=== PATIENT | male | born 1945 | race Caucasian/White ===

== ENCOUNTER → 2019-12-18 12:02 | Outpatient (CLI) | payer MEDICARE, OTHER, SELFPAY ==
--- NOTE | 2019-12-18 | DI.MRI.S_ITS ---
PROCEDURE: MR LUMBAR SPINE WO CON INDICATIONS: Radiculopathy, lumbar region TECHNIQUE: Noncontrast sagittal T1 spin echo and T2 fast echo, sagittal STIR, axial T1 and T2 fast spin echo through the lumbar spine. In cases with scoliosis, additional coronal T2 fast spin echo may be performed. COMPARISON: [facility], CR, XR LUMBAR SPINE WITH OLBIQUES PLUS FLEXION EXTENSION, 11/27/2019, 8:43. FINDINGS: Image quality: Excellent. Alignment and Curvature: 5 lumbar type vertebral bodies are present by plain film. Mild grade 1 retrolisthesis of T12 on L1, L1 on L2, L2 on L3, L3 on L4, L4 on L5, and L5 Bone Marrow: Marrow is of normal overall signal. No acute vertebral body compression fractures. On S1. Moderate reactive signal within the endplates adjacent to the T12-L1 and L5-S1 intervertebral discs. Mild reactive signal throughout the remainder of the lumbar endplates. Spinal Cord: Conus medullaris terminates at the mid L2 level. Visualized cord demonstrates normal signal and size. Paraspinous Soft Tissues: No paravertebral masses. L1-L2: Moderate disc height loss and desiccation. Mild diffuse disc bulge. Mild facet and ligamentum flavum hypertrophy. Mild epidural lipomatosis. Mild canal stenosis. Mild bilateral foraminal stenosis. L2-L3: Moderate disc height loss and desiccation. Moderate diffuse disc bulge. Mild facet and ligamentum flavum hypertrophy. Mild epidural lipomatosis. Moderate canal stenosis. Mild bilateral foraminal stenosis. L3-L4: Moderate disc height loss and desiccation. Moderate diffuse disc bulge. Mild facet and ligamentum flavum hypertrophy. Mild epidural lipomatosis. Severe canal stenosis. Moderate bilateral foraminal stenosis. L4-L5: Moderate disc height loss and desiccation. Mild diffuse disc bulge. Mild facet and ligamentum flavum hypertrophy. Mild epidural lipomatosis. Moderate canal stenosis. Moderate subarticular foraminal stenosis bilaterally. L5-S1: Severe disc height loss and desiccation. Mild diffuse disc bulge/osteophyte. Mild bilateral facet hypertrophy. Mild canal stenosis. Moderate subarticular foraminal stenosis bilaterally. IMPRESSION: 1. Multilevel degenerative disc and facet disease, as well as ligamentum flavum hypertrophy and epidural lipomatosis. 2. Multilevel canal stenosis, worst at L3-L4, where there is severe canal stenosis. Moderate canal stenoses at L2-L3 and L4-L5. 3. Multilevel foraminal stenoses, worst at L3-L4, L4-L5, and L5-S1, where there are moderate foraminal stenoses. Dictated by: Luz Majano M.D. on 12/18/2019 at 14:15 Approved by: Luz Majano M.D. on 12/18/2019 at 14:19
== END ==
PROVIDERS: PCP Internal Medicine; Referring Provider Physical Medicine & Rehabilitation; Visit Provider Physical Medicine & Rehabilitation
DX: M51.16 Intervertebral disc disorders with radiculopathy, lumbar region (principal); M51.17 Intervertebral disc disorders with radiculopathy, lumbosacral region; M48.061 Spinal stenosis, lumbar region without neurogenic claudication; M48.07 Spinal stenosis, lumbosacral region; E88.2 Lipomatosis, not elsewhere classified
CPT/HCPCS: 72148

== ENCOUNTER → 2020-04-25 19:12 | Outpatient (ROUT) | payer MEDICARE, OTHER, SELFPAY | PROVIDERS: PCP Internal Medicine; Visit Provider Internal Medicine | DX: N40.0 Benign prostatic hyperplasia without lower urinary tract symptoms (principal) | CPT/HCPCS: 84153 ==

== ENCOUNTER 2020-06-04 10:03 | Emergency (ER) | payer MEDICARE, OTHER, SELFPAY ==
[2020-06-04 10:03] VITALS: BP 172/92; PULSE 61; RESP 12; TEMP 36.4; O2SAT 98; BMI 27.9
[2020-06-04 10:09] VITALS: BP 172/92; PULSE 59
--- NOTE | 2020-06-04 10:14 | ED_ITS ---
HPI - Chest Pain General Chief Complaint: Chest Pain Stated Complaint: chest pain Time Seen by Provider: 06/04/20 10:08 Source: patient and family () Mode of arrival: Family Vehicle Limitations: no limitations History of Present Illness HPI narrative: This is a 74-year-old male comes emergency department with co mplaint of chest pain. Patient states started about an hour prior to arrival. Patient states he was just getting in the shower. He has not had similar symptoms in the past. Does have a history of UT with a stent 1995 and in 2013. Patient states at that time he had back pain this does not feel similar. He denies any clamminess or diaphoresis. No lightheadedness. No shortness of breath. No nausea or vomiting. He has not had any diarrhea constipation. He denies any urinary symptoms. He has noted some mild swelling in his lower extremities which is new. He does take aspirin 162 mg daily along with blood pressure medication and dyslipidemia medication. He smokes cigars most days. Drinks 1 alcoholic drink daily with no recreational drugs. Patient had an echo in the last year with his diabetes physician Dr. Jones. Patient states he had cataract surgery 2 days prior. He also 3000 mi flight which is about 5-6 hours about 6 days ago. Patient states he did ambulate during his flight. He has also had both Pfzer Related Data Allergies Allergy/AdvReac Type Severity Reaction Status Date / Time No Known Drug Allergies Allergy Verified 06/04/20 10:13 Review of Systems Review of Systems ROS Unobtainable: All systems reviewed & are unremarkable except as noted in HPI and below Patient History Social History Smoking Status: Current some day smoker Smoking Status: Current some day smoker tobacco type: cigars Substance Use Type: does not use Exam Narrative Exam Narrative: GENERAL: Alert and oriented x three, well-nourished male in moderate distress. Patient is not diaphoretic. HEENT: Head normocephalic, atraumatic, EOMI, pupils reactive, face symmetric, moist mucous membranes NECK: Supple, full range of motion CARDIOVASCULAR: Regular rate and rhythm without murmurs, rubs or gallops. RESPIRATORY: Breath sounds equal bilaterally, no wheezes rales or rhonchi. ABDOMEN: Soft, nontender. Normoactive bowel sounds all 4 quadrants. No guarding or rebound, rigidity, no mass : No CVA tenderness EXTREMITIES: Normal range of motion, no clubbing trace ankle edema. Non pedal. Neurovascularly intact NEUROLOGICAL: Cranial nerves II through XII grossly intact. Moving all extremities SKIN: Warm, dry, no petechiae, no rashes or lesions. Initial Vital Signs Initial Vital Signs: Vital Signs Temperature 97.6 F 06/04/20 10:03 Pulse Rate 61 06/04/20 10:03 Respiratory Rate 12 06/04/20 10:03 Blood Pressure 172/92 H 06/04/20 10:03 Pulse Oximetry 98 06/04/20 10:03 Course Orders Ordered: ED Orders 06/04/20 10:08 EKG-12 Lead Stat 06/04/20 10:15 COVID19 - ADMIT ([employer] IN [employer] swab/PCR) Stat 06/04/20 10:27 Complete Blood Count AUTO DIFF Stat Comprehensive Metabolic Panel Stat D Dimer Stat Lipase Stat NT-proBNP (BNP-Adult 18+) Stat Partial Thromboplastin Time Stat Prothrombin Time INR Stat Troponin & CK Cardiac Panel Stat Discontinued Medications Aspirin (Aspirin 81 Mg Chew Tab) 324 mg PO NOW ONE Stop: 06/04/20 10:09 Last Admin: 06/04/20 10:15 Dose: 324 mg Documented by: NA Fentanyl (Fentanyl 100 Mcg/2 Ml Inj) 25 mcg IV NOW ONE Stop: 06/04/20 10:29 Last Admin: 06/04/20 10:31 Dose: 25 mcg Documented by: NA Fentanyl (Fentanyl 100 Mcg/2 Ml Inj) 25 mcg IV NOW ONE Stop: 06/04/20 10:45 Last Admin: 06/04/20 10:46 Dose: 25 mcg Documented by: NA Heparin Sodium (Porcine) (Heparin 5,000 Unit/Ml Vial) 5,000 unit IV NOW ONE Stop: 06/04/20 10:17 Last Admin: 06/04/20 10:20 Dose: 5,000 unit Documented by: NA Sodium Chloride (Normal Saline 0.9%) 1,000 mls @ 150 mls/hr IV CONT MICHEL Last Infusion: 06/04/20 10:47 Dose: 999 mls/hr Documented by: Admin: 06/04/20 10:29 Dose: 150 mls/hr Documented by: NA Heparin Sodium/Dextrose (Heparin Drip) 25,000 unit in 500 mls @ 21.228 mls/hr IV CONT MICHEL; Protocol Last Infusion: 06/04/20 10:47 Dose: 11.98 units/kg/hr, 21.2 mls/hr Documented by: Admin: 06/04/20 10:20 Dose: 12 units/kg/hr, 21.228 mls/hr Documented by: NA Nitroglycerin (Nitroglycerin 0.4 Mg Sl Tab) 0.4 mg SL [id number] PRN PRN Reason: chest pain Last Admin: 06/04/20 10:20 Dose: 0.4 mg Documented by: NA Reevaluation(s) Reevaluation #1: Patient's chest pain did not improve with nitro but he dropped his pressure approximately 60 points from 172 systolic to 116. Based on this patient was given fentanyl. Heparin drip is running. Patient has received his aspirin. Time: 10:31 Consultations Consultation #1: Dr. Sen accepts for transfer to [facility] for STEMI. Time: 10:18 Vital Signs Vital signs: Vital Signs - 8 hr 06/04/20 10:03 06/04/20 10:09 06/04/20 10:22 Temperature 97.6 F Pulse Rate 61 59 L 64 Respiratory Rate 12 20 Blood Pressure 172/92 H 172/92 H Pulse Oximetry 98 06/04/20 10:27 Temperature Pulse Rate 64 Respiratory Rate 18 Blood Pressure 116/70 Pulse Oximetry 97 MDM - Chest Pain Lab Data Result diagrams: 06/04/20 10:27 06/04/20 10:27 Labs: Lab Results 06/04/20 06/04/20 06/04/20 Range/Units 10:15 10:27 10:27 WBC 5.4 (4.5-11.0) X10^3/uL RBC 4.53 (4.5-5.9) X10^6/uL Hgb 14.7 (13.5-17.5) g/dL Hct 42.3 (41-53) % MCV 93.4 (80-100) fL MCH 32.5 (26-34) PG MCHC 34.8 (30-36) % RDW 13.0 (11.6-14.8) % Plt Count 214 (150-400) X10^3/uL Neut % (Auto) 53.6 (50-75) % Lymph % (Auto) 36.0 (25-40) % Redwood % (Auto) 9.7 (3-14) % Eos % (Auto) 0.3 L (2-4) % Baso % (Auto) 0.4 (0-2) % Neut # (Auto) 2900 (4103-9042) /uL Lymph # (Auto) 2000 (5034-4450) /uL Redwood # (Auto) 500 (0-900) /uL Eos # (Auto) 0 (0-450) /uL Baso # (Auto) 0 (0-100) /uL PT 12.9 H (10.1-12.7) SECONDS INR 1.1 (0.9-1.3) APTT < 400 H* (26.4-36.2) SECONDS D-Dimer (<230) ng/mL Sodium (137-145) mmol/L Potassium (3.4-5.1) mmol/L Chloride (98-107) mmol/L Carbon Dioxide (22-32) mmol/L BUN (9-20) mg/dL Creatinine (0.66-1.25) mg/dL Estimated GFR (>60) mL/min BUN/Creatinine Ratio (6-22) Glucose (80-110) mg/dL Calcium (8.4-10.2) mg/dL Total Bilirubin (0.2-1.3) mg/dL AST (17-59) IU/L ALT (<50) IU/L Alkaline Phosphatase (38-126) U/L Total Creatine Kinase (55-170) U/L CK-MB (CK-2) CK-MB (CK-2) Rel Index Troponin I (0.01-0.034) ng/mL NT-Pro-B Natriuret Pep (<450) pg/mL Total Protein (6.3-8.2) g/dL Albumin (3.5-5.0) g/dL Globulin (1.7-4.1) g/dL Albumin/Globulin Ratio (1.0-2.8) Lipase (23-300) U/L SARS-CoV-2 (PCR) Negative (Negative) 06/04/20 06/04/20 Range/Units 10:27 10:27 WBC (4.5-11.0) X10^3/uL RBC (4.5-5.9) X10^6/uL Hgb (13.5-17.5) g/dL Hct (41-53) % MCV (80-100) fL MCH (26-34) PG MCHC (30-36) % RDW (11.6-14.8) % Plt Count (150-400) X10^3/uL Neut % (Auto) (50-75) % Lymph % (Auto) (25-40) % Redwood % (Auto) (3-14) % Eos % (Auto) (2-4) % Baso % (Auto) (0-2) % Neut # (Auto) (1060-7762) /uL Lymph # (Auto) (2443-0818) /uL Redwood # (Auto) (0-900) /uL Eos # (Auto) (0-450) /uL Baso # (Auto) (0-100) /uL PT (10.1-12.7) SECONDS INR (0.9-1.3) APTT (26.4-36.2) SECONDS D-Dimer 880 H (<230) ng/mL Sodium 139 (137-145) mmol/L Potassium 4.0 (3.4-5.1) mmol/L Chloride 105 (98-107) mmol/L Carbon Dioxide 26 (22-32) mmol/L BUN 16 (9-20) mg/dL Creatinine 0.94 (0.66-1.25) mg/dL Estimated GFR > 60.0 (>60) mL/min BUN/Creatinine Ratio 17.0 (6-22) Glucose 134 H (80-110) mg/dL Calcium 9.2 (8.4-10.2) mg/dL Total Bilirubin 1.1 (0.2-1.3) mg/dL AST 26 (17-59) IU/L ALT 20 (<50) IU/L Alkaline Phosphatase 71 (38-126) U/L Total Creatine Kinase 78 (55-170) U/L CK-MB (CK-2) TNP CK-MB (CK-2) Rel Index TNP Troponin I < 0.012 (0.01-0.034) ng/mL NT-Pro-B Natriuret Pep 188 (<450) pg/mL Total Protein 7.2 (6.3-8.2) g/dL Albumin 4.6 (3.5-5.0) g/dL Globulin 2.6 (1.7-4.1) g/dL Albumin/Globulin Ratio 1.8 (1.0-2.8) Lipase 174 (23-300) U/L SARS-CoV-2 (PCR) (Negative) ECG Data Attestation: I personally reviewed and interpreted this ECG as follows: Prior ECG tracings: not available for review Interpretation: ST elevation in 2 3 AVF with reciprocal changes in 1 and aVL. Patient appears to have some elevation in V6 and possibly V5 as well. No prior available. MDM Narrative Medical decision making narrative: This is a 74-year-old male comes when with substernal anterior chest pain without radiation. Patient has ST elevation on his EKG. He does not have any priors for evaluation but patient's EKG is consistent with ST elevated UT. Patient was given aspirin 324 mg here. Heparin was started and patient was given nitro which significantly dropped his pressure. Patient was given fentanyl x 2 instead with minimal improvement. is at bedside and aware of plan. Patient transferred ER to ER with accepting physician Dr. Sen. EKG was sent for review. Critical Care Time Critical Care Time Critical Care Time: Yes Total Critical Care Time: 35 Attestation: The high probability of a clinically significant, sudden or life threatening deterioration of the [cardiac, pulm] system(s) required my full and direct attention, intervention and personal management. The aggregate critical care time was [35] minutes. This time is in addition to time spent performing report ed procedures but includes the following: [x] Data Review and interpretation [x] Patient assessment and monitoring of vital signs [x] Documentation [x] Medication orders and management Discharge Plan Departure [facility] Clinical Impression: ST elevation (STEMI) myocardial infarction Referrals: Gutierrez Michelle MD [Primary Care Provider] -
[2020-06-04] MEDS: ASPIRIN 81 MG CHEW TAB 324 MG PO (10:15)
[2020-06-04] MEDS: HEPARIN 5,000 UNIT/ML VIAL 5000 UNIT IV (10:20)
[2020-06-04] MEDS: HEPARIN DRIP 25,000 UNIT/500 ML IV.SOLN 21.228 UNIT IV (10:20)
[2020-06-04] MEDS: NITROGLYCERIN 0.4 MG SL TAB SL (10:20)
[2020-06-04 10:22] VITALS: PULSE 64; RESP 20
[2020-06-04 10:27] VITALS: BP 116/70; PULSE 64; RESP 18; O2SAT 97
[2020-06-04] MEDS: SODIUM CHLORIDE 0.9% 1,000 ML 150 ML IV (10:29)
[2020-06-04] MEDS: fentaNYL 100 MCG/2 ML INJ 25 MCG IV ×2 (10:31→10:46)
[2020-06-04 10:34] LABS: Add Manual Diff / Slide Review NO; Basophils Absolute Auto 0 /uL (0-100); Basophils Percent Auto 0.4 % (0-2); Eosinophils Absolute Auto 0 /uL (0-450); Eosinophils Percent Auto 0.3 % (2-4); Hematocrit 42.3 % (41-53); Hemoglobin 14.7 g/dL (13.5-17.5); Lymphocytes Absolute Auto 2000 /uL (1100-4500); Mean Corpuscular HGB Conc 34.8 % (30-36); Mean Corpuscular Hemoglobin 32.5 PG (26-34); Mean Corpuscular Volume 93.4 fL (80-100); Monocytes Absolute Auto 500 /uL (0-900); Monocytes Percent Auto 9.7 % (3-14); Neutrophils Absolute Auto 2900 /uL (1500-7000); Neutrophils Percent Auto 53.6 % (50-75); Platelet Count 214 X10^3/uL (150-400); Red Blood Cell Count 4.53 X10^6/uL (4.5-5.9); White Blood Cell Count 5.4 X10^3/uL (4.5-11.0)
[2020-06-04 10:40] LABS: INR 1.1 (0.9-1.3); Prothrombin Time 12.9 SECONDS (10.1-12.7)
[2020-06-04 10:50] LABS: Alanine Aminotransferase 20 IU/L (<50); Albumin 4.6 g/dL (3.5-5.0); Albumin Globulin Ratio 1.8 (1.0-2.8); Alkaline Phosphatase 71 U/L (38-126); Aspartate Aminotransferase 26 IU/L (17-59); Bilirubin Total 1.1 mg/dL (0.2-1.3); Blood Urea Nitrogen 16 mg/dL (9-20); Calcium 9.2 mg/dL (8.4-10.2); Carbon Dioxide 26 mmol/L (22-32); Chloride 105 mmol/L (98-107); Creatine Kinase 78 U/L (55-170); Estimated Glomerular Filt Rate > 60.0 mL/min (>60); Globulin 2.6 g/dL (1.7-4.1); Glucose 134 mg/dL (80-110); HEMOLYSIS < 15 (0-50); Lipase 174 U/L (23-300); Sodium 139 mmol/L (137-145); Total Protein 7.2 g/dL (6.3-8.2)
[2020-06-04 11:01] LABS: Troponin I < 0.012 ng/mL (0.01-0.034)
[2020-06-04 11:12] LABS: PTT Partial Thromboplastin Tim < 400 SECONDS (26.4-36.2)
[2020-06-04 11:21] LABS: NT-proBNP (BNP-Adult 18+) 188 pg/mL (<450)
[2020-06-04 11:25] LABS: COVID19 - ADMIT (NP swab/PCR) Negative (Negative)
[2020-06-06 09:29] LABS: D Dimer > 400 ng/mL (<230)
== END 2020-06-04 10:57 | disposition short-term general hospital (02) ==
LOC: ED 10:25
PROVIDERS: Emergency Provider Emergency Medicine; PCP Internal Medicine
DX: I21.3 ST elevation (STEMI) myocardial infarction of unspecified site (principal); Z20.822 Contact with and (suspected) exposure to COVID-19; R07.9 Chest pain, unspecified
CPT/HCPCS: 80053; 82550; 83690; 83880; 84484; 85025; 85379; 85610; 85730; 87635; 93005; 93010; 96365; 96375; 99284; 99291; C9803; J1644; J3010

== ENCOUNTER → 2021-05-16 11:06 | Outpatient (CLI) | payer MEDICARE, OTHER, SELFPAY ==
[2021-05-16 11:40] LABS: Appearance Urine UA CLEAR; Bilirubin Urine UA NEGATIVE (NEGATIVE); Color Urine UA YELLOW; Glucose Urine UA NEGATIVE (Negative); Ketones Urine UA NEGATIVE (NEGATIVE); Leukocyte Esterase Urine UA NEGATIVE (NEGATIVE); Nitrite Urine UA NEGATIVE (Negative); Occult Blood Urine UA NEGATIVE (Negative); Protein Urine UA NEGATIVE (Negative); Urobilinogen Urine UA 0.2 E.U./dL (0.2)
[2021-05-16 11:46] LABS: Bacteria Urine None Seen; Culture Indicated Urine Cult Not Indicated; RBC Urine None Seen (0-5/HPF); Urine Comments Microscopic Normal; WBC Urine None Seen (0-5/HPF)
[2021-05-16 11:53] LABS: Hemoglobin A1C% w Est Avg Glu 5.2 % (4.0-6.0)
[2021-05-16 12:00] LABS: Blood Urea Nitrogen 16 mg/dL (9-20); Calcium 9.3 mg/dL (8.4-10.2); Carbon Dioxide 26 mmol/L (22-32); Chloride 105 mmol/L (98-107); Estimated Glomerular Filt Rate > 60.0 mL/min (>60); Glucose 119 mg/dL (80-110); HEMOLYSIS < 15 (0-50); Potassium 4.9 mmol/L (3.4-5.1); Sodium 140 mmol/L (137-145)
[2021-05-16 12:42] LABS: Add Manual Diff / Slide Review NO; Basophils Absolute Auto 0 /uL (0-100); Basophils Percent Auto 0.4 % (0-2); Eosinophils Absolute Auto 0 /uL (0-450); Eosinophils Percent Auto 0.4 % (2-4); Hemoglobin 14.8 g/dL (13.5-17.5); Lymphocytes Absolute Auto 1500 /uL (1100-4500); Lymphocytes Percent Auto 27.4 % (25-40); Mean Corpuscular HGB Conc 34.5 % (30-36); Mean Corpuscular Hemoglobin 32.1 PG (26-34); Mean Corpuscular Volume 93.2 fL (80-100); Monocytes Absolute Auto 600 /uL (0-900); Monocytes Percent Auto 10.8 % (3-14); Neutrophils Absolute Auto 3400 /uL (1500-7000); Platelet Count 247 X10^3/uL (150-400); Red Blood Cell Count 4.62 X10^6/uL (4.5-5.9); Red Cell Distribution Width 12.8 % (11.6-14.8); White Blood Cell Count 5.6 X10^3/uL (4.5-11.0)
== END ==
PROVIDERS: PCP Internal Medicine; Referring Provider Orthopaedic Surgery; Visit Provider Orthopaedic Surgery
DX: Z01.818 Encounter for other preprocedural examination (principal); R73.9 Hyperglycemia, unspecified; N39.0 Urinary tract infection, site not specified
CPT/HCPCS: 36415; 80048; 81001; 83036; 85025; 93005

== ENCOUNTER → 2021-06-21 09:21 | Outpatient (CLI) | payer MEDICARE, OTHER, SELFPAY ==
[2021-06-21 13:20] LABS: COVID19 -Nasal RAPID Negative (Negative)
== END ==
PROVIDERS: PCP Internal Medicine; Visit Provider Family Medicine Sleep Medicine
DX: Z20.822 Contact with and (suspected) exposure to COVID-19 (principal)
CPT/HCPCS: 87635; C9803

== ENCOUNTER 2021-06-23 11:21 | Day surgery (SDC) | payer MEDICARE, OTHER, SELFPAY ==
[2021-06-22 12:51] VITALS: BMI 25.9
[2021-06-23] VITALS (11 sets, daily range): BP systolic 100–148; BP diastolic 56–93; PULSE 73–93; RESP 11–19; TEMP 35.7–36.6; O2SAT 92–97; BMI 25.9
--- NOTE | 2021-06-23 06:00 | DI.RAD.S_ITS ---
PROCEDURE: XR HIP W PEL IF DONE RT 2V INDICATIONS: [place] on THE RIGHT TECHNIQUE: 4 view(s) of the hip acquired. COMPARISON: [facility], [place], XR HIP W PEL IF DONE RT 2V, 06/23/2021, 16:20. FINDINGS: Bones: Patient is status post right hip arthroplasty, with hardware components in expected positions. The hip joint appears congruent. The visualized bony structures appear intact. Soft tissues: Overlying postoperative changes are noted. No suspicious soft tissue densities. IMPRESSION: Intraoperative guidance for right hip arthroplasty. Dictated by: Riki Bolaños M.D. on 06/23/2021 at 17:38 Approved by: Riki Bolaños M.D. on 06/23/2021 at 17:39
[2021-06-23] MEDS: ACETAMINOPHEN 325 MG TABLET 975 MG PO (11:46)
[2021-06-23] MEDS: CELECOXIB 200 MG CAPSULE PO (11:47)
[2021-06-23] MEDS: LACTATED RINGERS 1,000 ML 42 ML IV ×2 (12:06→13:54)
[2021-06-23] MEDS: VANCOMYCIN 1,000 MG/200 ML PIGGYBACK 200 MG IV (12:08)
--- NOTE | 2021-06-23 12:32 | P.OP_ITS ---
Operative Date/Time/Diagnoses Date of procedure: 06/23/21 Time of procedure: 12:30 Pre-op diagnosis: left hip OA Post-op diagnosis: same Procedure & Clinicians Procedure: Right total hip arthroplasty anterior approach Same procedure as scheduled: Yes Indications: The patient has had progressively worsening right hip pain with radiographic ch anges consistent with arthritis. Non-operative management has failed and the patient has requested total hip replacement. The risks, benefits and alternatives to surgery were discussed with the patient prior to proceeding. Risks discussed included, but were not limited to, failure to relieve pain, leg length discrepancy, dislocation, stiffness, infection, nerve damage, deep venous thrombosis, pulmonary embolism, stroke, coma, heart attack, permanent paralysis and , as well as the potential need for eventual revision of the prosthetic. Surgeon: Peggy Cespedes [employer] Technical Lead Senior Developer: Kyung Lewis Anesthesia Type: General and Spinal Operative Notes Findings: Severe right hip osteoarthritis, adequate bone and stability Closure Type: primary Specimen(s): none sent Prosthetic devices, grafts, tissues, transplants, or devices: Cespedes and nephew size 11 standard offset anthology, 56 mm R3 cup, neutral poly liner, 36 by +0 Oxinium head,two screws Estimated Blood Loss (mL): 250 Blood products transfused: none Procedure in detail: The patient was brought to the operating room. Patient was carefully positioned in the supine position. Time-out was performed and antibiotics were given. Anesthesia was induced. He was positioned in the on the table in order to allow hyperextension of the hip. The right lower extremity was prepped and draped in a standard sterile fashion. An anterior right hip incision was made 1 fingerbreadth lateral to the anterior superior iliac spine and extended distally towards the greater trochanter. Dissection was carried out through skin and subcutaneous tissues. Superficial hemostasis was achieved. The fascia over the tensor fascia gordy was defined and incised with a knife. Two Allis clamps were used to grasp the fascia. Tensor fascia gordy was retracted laterally. A gelpi retractor was placed. Dissection was carried out down along the neck. The circumflex vessels were carefully identified and cauterized with the Aqua Mantis. There was good visualization of the femoral neck. A Cobra was placed superior to the neck and the gluteus fibers were carefully stripped from that superior aspect of the capsule. A 2nd retractor was placed along the inferior aspect of the neck. The rectus insertion along the capsule was partially released. A 3rd retractor that was then gently placed over the rim of the acetabulum under the rectus. Capsule was carefully incised and released from the intertrochanteric line circumferentially superior to the mid sagittal line and inferiorly to the mid sagittal line until the lesser trochanter was palpable. A tag stitch was placed both in the superior and inferior limb of the capsular insertion. Along the acetabulum capsule was also released up to the mid sagittal 12:00 position. A portion of the labrum was resected. A saw was used to perform an osteotomy at the level of the intertrochanteric line and the junction of the superior femoral neck leaving approximately 1 finger breath of residual inferior neck above the lesser trochanter. A 2nd cut was made along the femoral neck at the base of the head and a napkin ring of neck was removed. Corkscrew was placed in the femoral head and the head was removed without difficulty. Retractors were then repositioned around the acetabulum. Residual labrum was resected and additional osteophytes were removed. A reamer that was 4 mm below the templated size was placed by hand in the acetabulum and it was reamed to centralize the acetabulum. It was then reamed up to 2 under the templated size and fluoroscopy was brought in to confirm the position of the reaming and depth of reaming. I reamed 1 under the anticipated size. A trial cup was placed and noted that it was appropriately sized and fluoroscopy confirmed position and depth. The component was open and inserted without difficulty fluoroscopic imaging was used to confirm that the cup had been adequately seated and was well positioned. It was further stabilized with 2 screws. Neutral trial liner was placed. The cup was tested and noted to be stable. Attention was then directed to the femur. The femur was gently hyperextended additional capsular release was performed as needed in order to allow adequate visualization of the proximal femur with elevation of the femur. Patient was placed in a hyperextended slightly adducted position with maximum external rotation. Box osteotome was used to check for any residual neck as well as sclerotic bone along the trochanter. Biola pepper was placed in the femur. Additional broaching was performed. Canal finder was used to determine the alignment of the canal and position. Size 1 broach was placed. The canal was then appropriately broached up to the templated size as long as there was adequate stability of the broach and serial advancement of the broach without excessive impingement. Specific attention was directed at avoiding varus attempting to direct the distal aspect of the broach more anteriorly and avoiding excessive anteversion. Trial reduction showed acceptable range of motion, good stability, no posterior impingement, mosque of leg length and appropriate lateral shuck. I also hyperflexed the hip and checked that there was no impingement anteriorly and there was good stability with flexion, adduction and internal rotation. Marcaine and Exparel were injected. The stem was placed without difficulty. Repeat trial reduction and x-ray showed acceptable overall position, length, and no evidence of the femoral fracture. Final head was placed. Wound was meticulously irrigated with normal saline. The hip was reduced and additional Exparel and Marcaine were injected. The capsule was closed with interrupted nonabsorbable sutures. The fascia of the tensor was closed with interrupted and running Vicryl. No drain was placed. Any tensor fascia gordy muscle that appeared to be contused or injured which was a minimal amount was carefully resected. Capsule around the tensor was injected with Exparel and Marcaine. The skin was closed with barbed stitches for the subcutaneous tissue and skin. We also used surgical glue. The wound was dressed sterilely. Brief Betadine soak was also used and was meticulously irrigated with normal saline. Patient was transferred to recovery room in satisfactory condition. Complications: none Post-operative Condition: stable Disposition: Acute Care Plan for aftercare: The patient will be maintained on a standard total hip replacement protocol with weight bearing as tolerated and anterior hip precautions. The patient will receive Aspirin and sequential compression devices for DVT prophylaxis. The patient will be discharged home when safe for the home environment.
--- NOTE | 2021-06-23 12:32 | PM.PREOP ---
Pre-operative Note COVID-19 COVID-19 status: Negative Interval Note History & Physical reviewed/Exam performed by Physician: Yes Changes to H&P: No
[2021-06-23] MEDS: CEFAZOLIN 2 GM/20 ML SYRINGE IV ×2 (12:55→21:08)
[2021-06-23] MEDS: TRANEXAMIC ACID 1,000 MG VIAL 1000 MG INJ ×2 (13:00→15:15)
--- NOTE | 2021-06-23 13:23 | SUR.OPER ---
Patient supine on padded Kent table, one arm on padded arm board at <90, other arm padded and secured with tape across patient's chest, both legs secured in padded traction boots and positioned per surgeon, padded post at patient's groin, pressure points checked and padded.
[2021-06-23] MEDS: SODIUM CHLORIDE IRRIG SOLUTION 250 ML, POVIDONE-IODINE SPONGE STICKS 1 APPLIC IRR (15:15)
[2021-06-23] MEDS: BUPIVACAINE LIPOSOME 266 MG/20 ML VIAL INJ (15:16)
[2021-06-23] MEDS: BUPIVACAINE 0.25% (PF) 60 ML, EPINEPHrine 0.3 MG INJ (15:16)
--- NOTE | 2021-06-23 15:29 | DI.RAD.S_ITS ---
PROCEDURE: XR HIP W PEL IF DONE RT 2V INDICATIONS: RIGHT TOTAL HIP (ANT) TECHNIQUE: AP pelvis with lateral view(s) of the right hip(s). COMPARISON: [facility], , XR HIP W PEL IF DONE RT 2V, 06/23/2021, 14:12. FINDINGS: Bones: Expected immediate postoperative appearance of total right hip arthroplasty. No evidence of hardware failure or loosening. No fractures or dislocations. Pelvic ring appears intact. No suspicious bony lesions. It is noted that the hip is the right hip and the films are labeled left hip. Soft tissues: The visualized bowel gas pattern is normal. No suspicious soft tissue calcifications. IMPRESSION: Expected immediate postoperative appearance, status post total right hip arthroplasty. Dictated by: Dima Luis M.D. on 06/23/2021 at 17:49 Approved by: Dima Luis M.D. on 06/23/2021 at 17:50
--- NOTE | 2021-06-23 15:57 | SUR.PHASEI ---
Report Given via phone to SEA SHI
--- NOTE | 2021-06-23 16:13 | SUR.PHASEI ---
Patient clothing delivered with patient to room and handed off to SEA SHI. Patient A&O, no nausea or pain.
[2021-06-23] MEDS: IBUPROFEN 400 MG TABLET PO ×2 (17:09→20:10)
[2021-06-23] MEDS: LACTATED RINGERS 1,000 ML 125 ML IV (17:11)
[2021-06-23] MEDS: ASPIRIN EC 81 MG TABLET PO (20:10)
[2021-06-23] MEDS: ACETAMINOPHEN 325 MG TABLET 650 MG PO (20:10)
[2021-06-23] MEDS: DOCUSATE 100 MG CAPSULE PO (20:11)
--- NOTE | 2021-06-23 22:34 | PC.NURSE ---
Patient still not having a sensation to urinate. Bladder scanned noted 288 ml. Will monitor.
[2021-06-24] MEDS: LACTATED RINGERS 1,000 ML 125 ML IV (01:48)
[2021-06-24 03:00] VITALS: BP 110/76; PULSE 87; RESP 16; TEMP 36.2; O2SAT 94
[2021-06-24] MEDS: IBUPROFEN 400 MG TABLET PO ×2 (04:38→08:31)
[2021-06-24] MEDS: CEFAZOLIN 2 GM/20 ML SYRINGE IV (04:44)
[2021-06-24 05:35] LABS: Hematocrit 36.7 % (41-53); Hemoglobin 12.8 g/dL (13.5-17.5)
--- NOTE | 2021-06-24 05:49 | PC.NURSE ---
Patient tried to void in the urinal & BSC with out any success. Drank 2 cups of coffee & water but still not able to urinate. Sat in the BSC for over 45 minutes per patient request, states I would like not to get catheterize & try to urinate. Encouraged to just go back to bed & will bladder scan him, @ 0405 bladder scanned showed 720 ml. Straight cath. performed noted 825 ml. out & tolerated procedure well. Will continue POC & monitor.
[2021-06-24 07:00] VITALS: BP 103/64; PULSE 57; RESP 18; TEMP 36.3; O2SAT 93
[2021-06-24] MEDS: ASPIRIN EC 81 MG TABLET PO (08:17)
[2021-06-24] MEDS: EZETIMIBE 10 MG TABLET PO (08:18)
[2021-06-24] MEDS: ACETAMINOPHEN 325 MG TABLET 650 MG PO (08:18)
[2021-06-24] MEDS: DOCUSATE 100 MG CAPSULE PO (08:19)
[2021-06-24] MEDS: ATORVASTATIN 20 MG TABLET 40 MG PO (08:30)
[2021-06-24 08:32] VITALS: BP 103/64; PULSE 57
--- NOTE | 2021-06-24 08:54 | PM.DS.1 ---
History of Present Illness History of Present Illness Date Patient Seen: 06/24/21 Time Patient Seen: 08:55 Chief complaint: RT EVERETTE *OPB* Narrative: Operative Date/Time/Diagnoses Date of procedure: 06/23/21 Time of procedure: 12:30 Pre-op diagnosis: left hip OA Post-op diagnosis: same Procedure & Clinicians Procedure: Right total hip arthroplasty anterior approach Same procedure as scheduled: Yes Indications: The patient has had progressively worsening right hip pain with radiographic changes consistent with arthritis. Non-operative management has failed and the patient has requested total hip replacement. The risks, benefits and alternatives to surgery were discussed with the patient prior to proceeding. Risks discussed included, but were not limited to, failure to relieve pain, leg length discrepancy, dislocation, stiffness, infection, nerve damage, deep venous thrombosis, pulmonary embolism, stroke, coma, heart attack, permanent paralysis and , as well as the potential need for eventual revision of the prosthetic. Surgeon: Peggy Cespedes Bank Sales And Service Manager: Kyung Lewis Anesthesia Type: General and Spinal Operative Notes Findings: Severe right hip osteoarthritis, adequate bone and stability Closure Type: primary Specimen(s): none sent Prosthetic devices, grafts, tissues, transplants, or devices: Cespedes and nephew size 11 standard offset anthology, 56 mm R3 cup, neutral poly liner, 36 by +0 Oxinium head,two screws Estimated Blood Loss (mL): 250 Blood products transfused: none Discharge Providers Provider Discharge Date: 06/24/21 Primary care physician: Gutierrez Michelle MD Consults: 06/23/21 06:00 Consult to Anesthesiology Routine Comment: Consulting Provider: Anesthesiologist Reason for consultation: Regional block for post operative pain control 06/23/21 16:17 Consult to Discharge Planning Routine Comment: Consult to Physical Therapy Evaluate & Treat Comment: Physician Instructions: post op EVERETTE protocol Consult to Respiratory Therapy Evaluate & Treat Comment: Physician Instructions: Evaluate and treat Discharge provider: Kyung Lewis PA-C Summary Hospital Course Discharge Diagnosis: s/p RIGHT total hip arthroplasty Acute anemia d/t expected surgical blood loss Hospital Course: Mr De La Cruz's hospital course was unremarkable. On POD# 1 he was feeling well and wanted to go home with his spouse. He was eating and voiding without difficulty. He was evaluated by PT. His pain was well-controlled on oral medication. His early AM VS were remarkable for mild hypotension and bradycardia; his AM lisinopril and metoprolol doses were held. Exam Vital Signs (past 8 hours): - 06/24/21 03:00 06/24/21 07:00 06/24/21 08:32 Temperature 97.1 F L 97.4 F L Pulse Rate 87 57 L 57 L Respiratory Rate 16 18 Blood Pressure 110/76 103/64 103/64 Pulse Oximetry 94 93 Oxygen Delivery Method Room Air Oxygen Flow Rate 0 Narrative Exam Narrative: 5/5 strength in hip flexors, quadriceps, hamstrings, DF, PF, EHL bilaterally. Sensation to light touch intact in BLE. Calves soft, compressible, nontender and without palpable cords or masses. Objective Labs Result Diagrams: 06/24/21 05:00 Labs: Laboratory Results - last 24 hr 06/24/21 05:00 Hgb 12.8 L Hct 36.7 L PFSH Medical History (Updated 06/22/21 @ 13:14 by Nancy Ocampo RN) CAD (coronary artery disease) HLD (hyperlipidemia) HTN (hypertension) Myocardial infarction (06/04/20) Myocardial infarction (1995) Surgical History (Updated 06/24/21 @ 08:51 by Kyung Lewis PA-C) History of ankle surgery (2005) Hx of heart artery stent Hx of tonsillectomy S/P epidural steroid injection Status post cataract extraction and insertion of intraocular lens of left eye Social History household members: spouse Smoking Status: Current some day smoker alcohol intake: current Discharge Assessment & Plan Assessment and Plan Assessment: s/p RIGHT total hip arthroplasty Acute anemia d/t expected surgical blood loss Plan of Treatment: Discharge home w/ ASA 81 mg BID for VTE prophylaxis, outpt PT, multimodal pain control. Discharge Plan Discharge Plan Patient Disposition: Home Discharge orders & Medications Discharge Orders: Discharge (Order); Ordered 06/24/21 Ordered By: Kyung Lewis Prescriptions: New acetaminophen 325 mg Tablet 650 mg PO TID Qty: 180 1RF aspirin 81 mg Tablet,Delayed Release (Dr/Ec) 81 mg PO BID Qty: 90 0RF docusate sodium 100 mg Capsule 100 mg PO BID PRN (Reason: constipation) Qty: 60 2RF ibuprofen 400 mg Tablet 400 mg PO Q4HR Qty: 180 1RF oxycodone 5 mg Tablet 5 mg PO Q4-6H PRN (Reason: pain, severe) Qty: 60 0RF Continued atorvastatin 40 mg Tablet 40 mg PO DAILY 0RF metoprolol succinate 25 mg Tablet Extended Release 24 Hr 12.5 mg PO DAILY 0RF ramipril 10 mg Capsule 10 mg PO DAILY 0RF ezetimibe 10 mg Tablet 10 mg PO DAILY 0RF Discontinued aspirin [Aspir-81] 81 mg Tablet,Delayed Release (Dr/Ec) 81 mg PO DAILY 0RF Follow up/Referrals: Gutierrez Michelle MD [Primary Care Provider] - Peggy Cespedes MD [Physician] - As previously scheduled (Follow up with Dr Cespedes on 07/06/2021 @ 11:00 am at [facility] office in [place]) Diet/Activity/Treatments Diet: Diet as Tolerated Activity: Weight bearing as tolerated. Anterior hip precautions. Cold/Heat Therapy: Ice to hip as needed for pain. Skin/Wound/Dressing Care Report to your healthcare provider any signs of infection, such as:: chills, fever, night sweats, unusual drainage and unusual redness Dressing: May shower. Leave Aquacel dressing in place until follow up visit. No bathing or otherwise soaking incision. Call office if dressing becomes saturated inside. Visit Report/Discharge Packet Instructions: DI for Hip Replacement Stand Alone Forms: Surgery Discharge Discharge Data Primary Care Provider: Gutierrez Michelle V Attending Provider: Peggy Cespedes
--- NOTE | 2021-06-24 09:20 | PT.IIE ---
Current Diagnoses Unilateral primary osteoarthritis, right hip (06/23/21) Presence of right artificial hip joint (06/23/21) Surgery Performed Operation Date: 06/23/21 13:00 Actual Procedures p Total Hip Arthroplasty/Anterior Approach(Right) - Peggy Cespedes MD Medical History (Last Updated 06/22/21 @ 13:14 by Nancy Ocampo RN) CAD (coronary artery disease) HLD (hyperlipidemia) HTN (hypertension) Myocardial infarction (06/04/20) Myocardial infarction (1995) Physical Therapy Inpatient Evaluation/Re-Eval M1 PT/OT-IP Prior Functional Status Start: 06/24/21 12:41 Freq: NEEDED Status: Active Protocol: Document 06/24/21 09:20 AB (Rec: 06/24/21 12:53 AB [id number]) Medical Review Prior Functional Status Medical History Reviewed Yes Communication able to make needs known Mobility and Gait pt stated that he is indpeendent with all mobilities and ambulation without AD Social History Household Members spouse Living Arrangements House Number of Floors (Floors) Two Floors Number of Stairs To Enter/Railing? 1 step to enter 5 steps + landing+10 steps R rail ascending to get to bedroom level pt stated that he may stay on first level of the house Home Environment High Toilet,Walk in Shower Home Equipment Front Wheel Walker,Hand Held Shower,Grab Bars In Shower Employment Status Retired M2 PT-IP Current Condition Start: 06/24/21 12:41 Freq: NEEDED Status: Active Protocol: Document 06/24/21 09:20 AB (Rec: 06/24/21 12:53 AB [email or web address]) Physical Therapy Current Condition Current Condition Evaluation Date 06/24/21 Treatment Diagnosis s/p R EVERETTE anterior approach; difficulty in walking Onset Date 06/23/21 M3 PT-IP Subjective Start: 06/24/21 12:41 Freq: NEEDED Status: Active Protocol: Document 06/24/21 09:20 AB (Rec: 06/24/21 12:53 AB [email or web address]) Subjective Physical Therapy Visit Type Type Initial Evaluation Visit Start Time 09:20 Visit Stop Time 10:27 Total Visit Minutes 67 Number of RUN BOAT OPERATOR Visits 0 Physical Therapy Visit Comments Patient Comments agreeable to do PT Therapy Pain Assessment Pain Present Pain Present Denied Pain M4 PT-IP Mobility and Gait Start: 06/24/21 12:41 Freq: NEEDED Status: Active Protocol: Document 06/24/21 09:20 AB (Rec: 06/24/21 12:53 AB [id number]) PT-Bed Mobility Assessment Supine to Sit Supine to Sit Standby Assistance Sit to Supine Sit to Supine Standby Assistance PT-Transfer Assessment Sit to and From Stand Sit to and from Stand Standby Assistance,Contact Guard Assistance Equipment Transfer Assistive Device Gait Belt,Front Wheeled Walker Orthotic/Prosthetic Devices or Brace: No Transfers Transfer Destination Chair Transfer Technique ambulated Transfer Ability Level of Assist Standby Assistance,Contact Guard Assistance,1 Person Assistance,Use of Upper Extremities Comments Mobility Comments educated pt and spouse regarding anterior hip precautions. pt able to recall. completed supine to sit SBA. completed sit to stand CGA and ambulatedin room ~ 20 ft using FWW CGA and cues for R quads activation. pt sat on chair. agreed to do stairs. completed sit to stand SBA to CGA and ambulated in the hallway SBA to CGA ~ 200 ft. caregiver training conducted. educated pt and spouse regarding stair climbing. pt completed up/down platform step using FWW with spouse assisting initially with PT cueing but able to complete without cues on 2nd attempt. completed up/down stair holding on to R rail with B hands CGA and spouse assisted pt. completed x 3 reps. pt ambulated back to his room using FWW with spouse assisting CGA. pt sat on the chair. educated spouse on how to use safety belt and was able to counter demonstrate donning of belt. pt and spouse without any other concerns. Gait Assessment Gait Gait Assistance Required: Standby Assistance,Contact Guard Assist Distance (Feet) 200 Able to Maintain Weight Bearing Status Yes During Gait Assistive Devices Assistive Device Gait Belt,Front Wheeled Walker Orthotic/Prosthetic Devices or Brace: No Gait Deviations General Gait Pattern Decreased Stride Length, Decreased Feet Clearance Factors Limiting Gait Function Factors Limiting Gait Function Decreased Activity Tolerance, Decreased Strength,Limited Range of Motion,Pain,Poor Balance,Poor Safety Awareness Stair Climbing Assessment Evaluation Level of Assist On Stairs Contact Guard Assistance Devices Stair Climbing Assistive Devices Right Railing Technique/Endurance Stair Climbing Direction Ascend and Descend Stair Climbing Technique Step to Step Number of Steps Climbed 3 Query Text: Stair Climbing Set # Repetitions (reps) 3 Comments Stair Climbing Comments up/down platform step using FWW CGA PT-Balance Assessment Sitting Balance and Reactions Static Sitting Balance Ability Normal Dynamic Sitting Balance Ability Good Standing Balance and Reactions Static Standing Balance Ability Fair Dynamic Standing Balance Ability Fair Device Used FWW M5 PT-IP Objective Assessments Start: 06/24/21 12:41 Freq: NEEDED Status: Active Protocol: Document 06/24/21 09:20 AB (Rec: 06/24/21 12:53 AB [id number]) Orientation Orientation/Cognition Level of Alertness Alert Orientation Name,Place,Situation Language Function Ability No Deficits Noted Safety Awareness Decreased Safety Awareness Memory Description No Deficits Noted Gross Range of Motion Lower Extremity ROM Assessment Within Functional Limits Strength Lower Extremity Strength Assessment Right Impaired Hip 3+/5 Knee 4-/5 Coordination Assessment Gross Coordination Gross Coordination WNL Sensation Assessment Sensation Gross Sensation WNL Muscle Tone Muscle Tone WNL Yes M6 PT-IP Treatment Start: 06/24/21 12:41 Freq: NEEDED Status: Active Protocol: Document 06/24/21 09:20 AB (Rec: 06/24/21 12:53 AB [email or web address]) Physical Therapy Treatment Education Education Provided Precautions,Weight Bearing Status,Post-Op Packet,Safety M7 PT-IP Assessment and Plan Start: 06/24/21 12:41 Freq: NEEDED Status: Active Protocol: Document 06/24/21 09:20 AB (Rec: 06/24/21 12:53 AB [id number]) PT Summary Assessment and Plan Potential Rehabilitation Potential Good Status of Condition at Evaluation Stable Summary Impairments Pain,ROM,Strength,Balance, Coordination,Sensation,Tone, Cognition,Bed Mobility, Transfers,Gait,Activity Tolerance Assessment Summary pt requiring SBA to CGA with mobility using FWW and will have his spouse to assist him at home. caregiver training was conducted and spouse was able to assist pt safely. pt plans to go home today and has outpt PT setup. Goals Bed Mobility Goal Independent Transfer Goal Independent,Front Wheeled Walker Gait Goal Independent,Front Wheel Walker Gait Distance 250 Other Goals up/down platform step using fWW mod I up/down 15 steps R rail mod I Days to Meet Goals 3 Frequency of Treatment Frequency Of Treatment Twice a Day Treatment Plan Physical Therapy Treatment Plan Bed Mobility Training,Transfer Training,Gait Training, Therapeutic Exercise,Balance Retraining,Post Op Education, Discharge Planning,Hot or Cold Pack,Neuromuscular Re-ed, Coordination Retraining,Manual Therapy Precautions Anterior Hip Precautions No Hip Extension,No Hip External Rotation Weight Bearing Status Weight Bearing Status Weight Bear as Tolerated Allowed Weight Bearing Amount (enter % RLE WBAT or #) (%) Recommendations To Nursing Amount of Assist Needed 1 Person Assist Discharge Recommendations PT Discharge Recommendations Home with Assistance, Outpatient PT Transportation Needs at Discharge Private Vehicle
--- NOTE | 2021-06-24 12:53 | CM.IDA ---
DCP: Case received, EMR reviewed and met with patient. Spouse, Fide, was at bedside. Introduced self and role. Was able to obtain information regarding patient's baseline activity status at home prior to his surgery. DCP assessment completed with information currently available. Patient is a 76 year old male who admitted yesterday morning to the care of the orthopedic team. PCP: Dr. Michelle. Payer: confirmed: Medicare/[employer]. Patient came to the hospital via private vehicle for a surgical procedure. Patient had right total hip arthroplasty anterior approach. Patient has history of left hip osteoarthritis. Met with patient and spouse in his room. P.T. had already worked with patient, and nurse was in there working on discharge paper work. Patient resides with spouse, Fide, in [place]. Patient is alert and oriented, spouse will be assisting patient when he goes home. She was assisting patient with his shoes with this DC Associate Store Director walked into the room. According to P.T. notes, patient has some steps in the home, but may be able to stay on the first level. He has FWW, and grab bars in the shower. Patient will be pursuing outpatient P.T. P: Patient is discharging home with spouse today, with outpatient P.T. Ashwini Bueno RN/Mft Discharge Planning/Care Management CM Discharge Assessment Start: 06/24/21 12:33 Freq: Status: Active Protocol: Document 06/24/21 12:33 (Rec: 06/24/21 12:41 [id number]) Discharge Planning Assessment Assigned Rivet Tester Ashwini Bueno RN/Mft Advance Directives? No History Provided By Patient,Medical Record Prior Living Arrangements House Household Members spouse Type of transporation used prior to Drives own vehicle admit Independent with ADL's Yes Is patient alert and oriented? Yes Caregiver for Another No DME Already Rented / Owned FWW / Walker,Cane Barriers to Discharge No Discharge Plan Home Transportation Arrangement Spouse Referrals Initiated None needed Whiteboard Updated in Patient Room with Yes name and ext. # of Rivet Tester Review Status In Process Next Review Type Continued Stay Review Pre-Anesthesia Assessment Start: 06/22/21 12:51 Freq: Status: Complete Protocol: Document 06/22/21 12:51 CAB (Rec: 06/22/21 13:52 CAB [id number]) Pre-Anesthesia Assessment Preferred Name Rich Patient Information Reviewed Via Phone Assessment Assessment Completed With Patient H&P Completed Within 30 Days Yes Diagnostic Results BMP/CMP,CBC,EKG,Urinalysis Comment Labs/ECG @ [facility] 05/16/21, COVID screen @ [facility] 06/21/21 Negative Primary Care Provider Gutierrez Michelle Seen Specialist in Last 12 Months Yes Specialist Seen Cotton Ball Machine Tender,Opthamologist/ Fence Erector Supervisor,Orthopedist Primary Language [employer] Payroll Consultant Required No Height 5 ft 10.5 in Weight 183 lb Body Mass Index (BMI) 25.9 Hearing Ability Normal Visual Assist Glasses Dentition Type Teeth, Natural Present Barriers to Learning None Hx Anesthesia Reactions No Hx Family Anesthesia Reaction No Hx Malignant Hyperthermia No Hx Blood Transfusions No Anesthesia Review Requested No alcohol intake current alcohol intake frequency 0-2 drinks per day Smoking Status Current some day smoker Tobacco type cigars Substance Use Type does not use Pain Present Pain Reported Musculoskeletal Symptoms Abnormal Gait,Difficulty Walking,Joint Pain History of Falling (Recent or History of No ) Patient is completely paralyzed or No completely immobile Mental Status Oriented to own ability Is patient on oxygen? No Does patient have DOMINIQUE/SOB No Hx Sleep Apnea No Currently Taking a Beta Livia Yes: Metoprolol Can You Climb a Flight of Stairs Without Yes SOB Hx Chest Pain Yes: r/t [place] Hx SOB No Hx Syncope or Dizziness No Anti-Coagulant Therapy No Has a Cotton Ball Machine Tender Yes: Dr. Jones - last visit Cardiac Testing No Hx Pacemaker/ICD No Pacemaker Rep Required? No Comment Cardiac records to surgery folder for dos Diet Type At Home Regular dysphagia No Urinary Catheter Present No Hx Urinary Self Catheterization No Diabetes No HgbA1C 5.2 Date 05/16/21 Hx Drug Resistant Organism No Presence of External or Internal Medical Yes: Left ankle hardware, Devices cardiac stents x 3 Have you had any close contact with No someone diagnosed with COVID-19? Received a COVID vaccine? Yes Received all doses? Yes Marital Status Lives With spouse Prior Living Arrangements House Number of Floors (Floors) Two Floors Support System Spouse Does the Patient Have Assistance After Yes Surgery Patient Discharge Plan Description Return Home Comment Pt advised 1 day length of stay per surgeon Feels Safe in Current Environment Yes Been Physically Hurt or Threatened By a No Person in Current Environment Do you have thoughts of harming yourself None or others? Are you currently considering suicide? No Do you have a plan to hurt yourself or No Plan others? Do You Have Any Spiritual Beliefs That No May Affect Your HC Choices? Do You Have Any Cultural Practices That No May Affect Your HC Choices? Comment [facility] Who Can We Speak to About Patient's Care Family, friends Identifying Code for Release of Patient Declines to issue Information Health Care Proxy/Next of Kin Fide () Tiki ( daughter in-law) Health Care Proxy Phone Number Fide: [phone] Tiki: Pt to update dos Emergency Contact Name Fide () Tiki ( daughter in-law) Emergency Contact Phone Number Fide: [phone] Tiki: Pt to update dos Advance Directives? No Power of Standpipe Tender Yes Power of Standpipe Tender Name Tiki (Daughter in-law) Power of Standpipe Tender Phone Number Pt to update dos PAC Instructions Durable medical equipment, Medications to take/avoid, Nasal antibiotic,No ETOH/ petroleum product on skin DOS, NPO,Post-op transportation,Pre -surgical wash,Sturdy shoes/ comfortable clothes,Do not bring valuables and remove jewelry
== END 2021-06-24 11:58 | disposition home or self-care (01) ==
LOC: OR 11:23 → AC 11:23
PROVIDERS: PCP Internal Medicine; Referring Provider Orthopaedic Surgery; Visit Provider Orthopaedic Surgery
PROC: (CPT 27130; principal; 2021-06-23 13:00)
DX: M16.11 Unilateral primary osteoarthritis, right hip (principal); I25.10 Atherosclerotic heart disease of native coronary artery without angina pectoris; I10 Essential (primary) hypertension; E78.5 Hyperlipidemia, unspecified; Z79.01 Long term (current) use of anticoagulants; Z79.82 Long term (current) use of aspirin
CPT/HCPCS: 27130; 36415; 73502; 76000; 85014; 85018; 94762; 97116; 97161; 97530; C1776; C9290; J0171; J0690; J1100; J2250; J2274; J2405; J2704; J3010

== ENCOUNTER → 2021-07-31 12:18 | Outpatient (CLI) | payer MEDICARE, OTHER, SELFPAY ==
[2021-06-23 17:18] VITALS: BMI 25.9
[2021-07-31 12:59] LABS: Hematocrit 38.4 % (41-53); Hemoglobin 13.3 g/dL (13.5-17.5); Mean Corpuscular HGB Conc 34.7 % (30-36); Mean Corpuscular Hemoglobin 32.3 PG (26-34); Platelet Count 214 X10^3/uL (150-400); Red Blood Cell Count 4.13 X10^6/uL (4.5-5.9); Red Cell Distribution Width 14.2 % (11.6-14.8); White Blood Cell Count 5.3 X10^3/uL (4.5-11.0)
[2021-07-31 13:19] LABS: Cholesterol 106 mg/dL (140-199); HDL Cholesterol 44 mg/dL (40-60); LDL Cholesterol Calculated 46 mg/dL (<100); Triglycerides 79 mg/dL (35-150)
[2021-07-31 13:47] LABS: Prostate Specific Antigen 1.72 ng/mL (0.10-4.00)
== END ==
PROVIDERS: PCP Internal Medicine; Referring Provider Internal Medicine; Visit Provider Internal Medicine
DX: E78.2 Mixed hyperlipidemia (principal); N40.0 Benign prostatic hyperplasia without lower urinary tract symptoms; I10 Essential (primary) hypertension
CPT/HCPCS: 36415; 80061; 84153; 85027

== ENCOUNTER → 2022-01-24 09:49 | Outpatient (CLI) | payer MEDICARE, OTHER, SELFPAY ==
[2021-06-23 17:18] VITALS: BMI 25.9
[2022-01-24 12:01] LABS: COVID19 -Nasal RAPID Negative (Negative)
== END ==
PROVIDERS: PCP Internal Medicine; Visit Provider Surgery
DX: Z20.822 Contact with and (suspected) exposure to COVID-19 (principal); Z01.812 Encounter for preprocedural laboratory examination
CPT/HCPCS: 87635; C9803

== ENCOUNTER 2022-01-25 14:15 | Day surgery (SDC) | payer MEDICARE, OTHER, SELFPAY ==
[2021-06-23 17:18] VITALS: BMI 25.9
--- NOTE | 2022-01-25 | PATH_ITS ---
[facility] Accession Number: [id number] . 01 Material submitted: . colon - ASCENDING POLYPS . 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 Serrated lesion, favor sessile serrated adenoma in two fragments. MRV 01/30/2022 1244 Local . 01 Electronically signed: . Mary Gan MD, Pathologist NPI- [id number] . 01 Gross description: . ASCENDING POLYPS: Received in formalin are 3 fragment(s) of chase, soft tissue measuring 0.8 x 0.2 x 0.2 cm to 0.2 x 0.2 x 0.1 cm submitted entirely in 1 cassette(s) /CPE 01/26/2022 0856 Local . 01 Pathologist provided ICD-10: D12.2 . 01 CPT . 379951 Specimen Comment: A courtesy copy of this report has been sent to [phone] Performed at: 01 [facility] [address] [place] [address], [place], [place] [id number] MD Jimi Porter MD Phone: [phone]
[2022-01-25 14:36] VITALS: BMI 27.9
[2022-01-25 15:05] VITALS: BP 144/81; PULSE 80; RESP 20; TEMP 36.7; O2SAT 99
[2022-01-25] MEDS: LACTATED RINGERS 1,000 ML 42 ML IV (15:07)
--- NOTE | 2022-01-25 15:36 | PM.HP.1 ---
History of Present Illness History of Present Illness Date Patient Seen: 01/25/22 Time Patient Seen: 15:36 Chief complaint: SCREENING COLONOSCOPY Narrative: Charles is a 76-year-old man who is here for colonoscopy. He has never had one before but he did have a sigmoidoscopy by Dr. Michelle in [place] many years ago. No known family history colon cancer. Patient History Medical History (Updated 01/25/22 @ 15:37 by Bo Koo MD) Advanced directives, counseling/discussion CAD (coronary artery disease) Essential hypertension Medicare annual wellness visit, initial Mixed hyperlipidemia Myocardial infarction (06/04/20) Myocardial infarction (1995) Overweight Primary osteoarthritis involving multiple joints Venous insufficiency Surgical History History of ankle surgery (2005) Hx of heart artery stent Hx of tonsillectomy S/P epidural steroid injection Status post cataract extraction and insertion of intraocular lens of left eye Family & Social History Social History: household members spouse Tobacco & Substance use: Tobacco type cigars Smoking Status Former smoker alcohol intake current alcohol intake frequency 0-2 drinks per day Substance Use Type does not use Meds Home Medications and Allergies Home Medications Medication Instructions Recorded Confirmed Type ezetimibe 10 mg tablet 10 mg PO DAILY 06/22/21 01/25/22 History metoprolol succinate 25 mg 12.5 mg PO DAILY 06/22/21 01/25/22 History tablet,extended release 24 hr ramipril 10 mg capsule 10 mg PO DAILY 06/22/21 01/25/22 History aspirin 81 mg tablet,delayed 81 mg PO DAILY 07/31/21 01/25/22 History release atorvastatin 80 mg tablet 80 mg PO DAILY 07/31/21 01/25/22 History sodium sul 1.479 gram-potas ch See Rx Instructions PO PER PKG DIR 01/01/22 Rx 0.188 gram-magnes sul 0.225 gram #24 tabs tablet (Sutab) sodium sul 1.479 gram-potas ch tab PO 01/25/22 01/25/22 History 0.188 gram-magnes sul 0.225 gram tablet (Sutab) Allergies Allergy/AdvReac Type Severity Reaction Status Date / Time No Known Drug Allergies Allergy Verified 01/25/22 14:36 Exam Vital Signs (past 8 hours): - 01/25/22 15:05 Temperature 98.1 F Pulse Rate 80 Respiratory Rate 20 Blood Pressure 144/81 H Pulse Oximetry 99 Oxygen Delivery Method Room Air Oxygen Delivery Method Room Air Const General: healthy appearing Assessment & Plan Assessment and plan (1) Colon cancer screening: Status: Acute Time Spent With Patient Critical Care time: I spent a total of [] minutes of critical care time on this patient's care today; this time is exclusive of procedural time.
--- NOTE | 2022-01-25 16:03 | PM.OP.COLON ---
Operative Date/Time/Diagnoses Date of procedure: 01/25/22 Time of procedure: 16:03 Pre-op diagnosis: Colon cancer screening Post-op diagnosis: same Procedure & Clinicians Study performed: Colonoscopy Same procedure as scheduled: Yes Surgeon: Bo Koo Procedure Notes Procedure in detail: Surgeon: Bo Koo MD Anesthesia: Dr. Sanchez Procedure: The patient was brought to the endoscopy suite, placed in left lateral decubitus position. The patient was connected to monitoring devices. A time-out was performed. Sedation was administered. Once the patient was adequately sedated, a digital rectal exam was performed and was normal. The scope was then inserted and advanced to the cecum where the appendiceal orifice was identified and photographed. The scope was then slowly withdrawn over greater than 6 minutes. The mucosa was thoroughly inspected. There were 2 polyps in the ascending colon. One was about 4 mm of bone was about 6 mm. Both were removed with cold snare and sent together. The scope was retroflexed in the rectum. No other abnormalities were noted. The scope was straightened and removed. The patient was awakened and brought to recovery. Scope withdrawal time: 7 minutes Sedation time: 15 minutes EBL: 5 mL Findings: 2 polyps in the ascending colon, 1 was 4 mm and 1 was 6 mm. Post-procedure Recommendations: Will call with biopsy results Disposition: PACU
[2022-01-25 16:05] VITALS: BP 101/56; PULSE 67; RESP 14; TEMP 36.6; O2SAT 95
[2022-01-25 16:10] VITALS: BP 97/62; PULSE 67; RESP 13; O2SAT 95
[2022-01-25 16:15] VITALS: BP 100/76; PULSE 65; RESP 13; TEMP 36.2; O2SAT 96
[2022-01-25 16:24] VITALS: BP 104/77; PULSE 63; RESP 96; TEMP 36.3; O2SAT 13
== END 2022-01-25 16:34 | disposition home or self-care (01) ==
PROVIDERS: PCP Internal Medicine; Referring Provider Surgery; Visit Provider Surgery
PROC: 0DJD8ZZ Inspection of Lower Intestinal Tract, Via Natural or Artificial Opening Endoscopic (ICD-10-PCS; CPT 45378; principal; 2022-01-25 15:15)
DX: Z12.11 Encounter for screening for malignant neoplasm of colon (principal); D12.2 Benign neoplasm of ascending colon
CPT/HCPCS: 45385; J2250; J2704; J3010

== ENCOUNTER → 2023-03-21 16:25 | Outpatient (CLI) | payer MEDICARE, OTHER, SELFPAY ==
[2021-06-23 17:18] VITALS: BMI 25.9
[2023-03-21 18:00] LABS: Hematocrit 39.8 % (41-53); Hemoglobin 13.8 g/dL (13.5-17.5); Mean Corpuscular HGB Conc 34.8 % (30-36); Mean Corpuscular Hemoglobin 32.9 PG (26-34); Mean Corpuscular Volume 94.6 fL (80-100); Platelet Count 198 X10^3/uL (150-400); Red Cell Distribution Width 13.1 % (11.6-14.8)
[2023-03-21 18:27] LABS: Alanine Aminotransferase 27 IU/L (<50); Albumin 4.4 g/dL (3.5-5.0); Albumin Globulin Ratio 1.6 (1.0-2.8); Alkaline Phosphatase 54 U/L (38-126); Aspartate Aminotransferase 31 IU/L (17-59); BUN Creatinine Ratio 25.3 (6-22); Bilirubin Total 1.2 mg/dL (0.2-1.3); Blood Urea Nitrogen 24 mg/dL (9-20); Calcium 9.2 mg/dL (8.4-10.2); Carbon Dioxide 29 mmol/L (22-32); Chloride 103 mmol/L (98-107); Cholesterol 83 mg/dL (140-199); Estimated Glomerular Filt Rate > 60 mL/min (>60); Globulin 2.7 g/dL (1.7-4.1); Glucose 82 mg/dL (80-110); HDL Cholesterol 38 mg/dL (40-60); HEMOLYSIS < 15 (0-50); LDL Cholesterol Calculated 35 mg/dL (<100); Potassium 4.5 mmol/L (3.4-5.1); Sodium 138 mmol/L (137-145); Total Protein 7.1 g/dL (6.3-8.2); Triglycerides 49 mg/dL (35-150)
[2023-03-21 18:57] LABS: Prostate Specific Antigen 1.57 ng/mL (0.10-4.00)
== END ==
PROVIDERS: PCP Internal Medicine; Referring Provider Internal Medicine; Visit Provider Internal Medicine
DX: E78.2 Mixed hyperlipidemia (principal); I10 Essential (primary) hypertension; N40.1 Benign prostatic hyperplasia with lower urinary tract symptoms; N13.8 Other obstructive and reflux uropathy
CPT/HCPCS: 36415; 80053; 80061; 84153; 85027

== ENCOUNTER 2024-04-08 09:14 | Emergency (ER) | payer MEDICARE, OTHER, SELFPAY ==
[2021-06-23 17:18] VITALS: BMI 25.9
[2024-04-08] VITALS (8 sets, daily range): BP systolic 126–140; BP diastolic 64–83; PULSE 53–63; RESP 13–21; TEMP 36.2; O2SAT 93–97; BMI 29.4
--- NOTE | 2024-04-08 09:35 | ED_ITS ---
HPI - Abdominal Pain General Chief Complaint: Abdominal Pain Stated Complaint: Possible left Groin hernia, Sent from PCP Time Seen by Provider: 04/08/24 09:26 Mode of arrival: Ambulatory History of Present Illness HPI narrative: Patient here for left inguinal pain mass swelling that started 4 days ago. Patient has history of right inguinal hernia repair many many years ago. Patient denies any new strain or constipation or heavy lifting that may have caused injury to this area. No fever chills. No urinary complaints. No bowel complaints. Patient states he had a small cyst in the inguinal area for many many years. However over the past weekend they noticed it did get vigor. at bedside. Related Data Home Medications Medication Instructions Recorded Confirmed ezetimibe 10 mg tablet 10 mg PO DAILY 06/22/21 04/08/24 metoprolol succinate 25 mg 12.5 mg PO DAILY 06/22/21 04/08/24 tablet,extended release 24 hr ramipril 10 mg capsule 10 mg PO DAILY 06/22/21 04/08/24 aspirin 81 mg tablet,delayed 81 mg PO DAILY 07/31/21 04/08/24 release atorvastatin 80 mg tablet 80 mg PO DAILY 07/31/21 04/08/24 Previous Rx's Medication Instructions Recorded nitroglycerin 0.4 mg sublingual 0.4 mg sublingual Q5M PRN chest 03/21/23 tablet pain #25 tabs doxycycline monohydrate 100 mg 100 mg PO BID #20 caps 04/08/24 capsule hydrocodone 5 mg-acetaminophen 325 1 tab PO Q6H PRN pain #20 tabs 04/08/24 mg tablet ondansetron 4 mg disintegrating 4 mg PO Q8H PRN nausea and 04/08/24 tablet vomiting #10 tabs Allergies Allergy/AdvReac Type Severity Reaction Status Date / Time No Known Drug Allergies Allergy Verified 04/08/24 09:18 Review of Systems Review of Systems ROS Unobtainable: All systems reviewed & are unremarkable except as noted in HPI and below Patient History Medical History (Updated 04/08/24 @ 13:20 by Ward Conley MD) Incarcerated left inguinal hernia Benign essential tremor History of colonic polyps Venous insufficiency Overweight Mixed hyperlipidemia Essential hypertension Primary osteoarthritis involving multiple joints CAD (coronary artery disease) Surgical History Status post total hip replacement, right History of ankle surgery (2006) Hx of tonsillectomy Status post cataract extraction and insertion of intraocular lens of left eye S/P epidural steroid injection Hx of heart artery stent Social History household members: spouse Smoking Status: Former smoker alcohol intake: current Smoking Status: Former smoker tobacco type: cigars alcohol intake frequency: 0-2 drinks per day Exam Narrative Exam Narrative: GENERAL: in no distress, not toxic not dyspneic HEAD: Normocephalic. EYES: Pupils equal round ENT: Mucous membranes moist. NECK: Trachea midline. CARDIOVASCULAR: Regular rate and rhythm RESPIRATORY: Clear to auscultation. Breath sounds equal bilaterally. No wheezes, rales, or rhonchi. GASTROINTESTINAL: Abdomen soft, non-tender there is an area of erythema induration left inguinal crease 10 cm in leg 3 cm in width. No fluctuance. No crepitus. No pain out of portion exam. Scrotal area no erythema edema induration no signs of Antonino's. No palpable abscess EXTREMITIES: No gross deformities. BACK: No flank tenderness. NEURO: AOx4. Clear speech SKIN: Warm and dry PSYCH: Not anxious, is cooperative Initial Vital Signs Initial Vital Signs: Vital Signs Temperature 97.2 F L 04/08/24 09:18 Pulse Rate 63 04/08/24 09:18 Respiratory Rate 14 04/08/24 09:18 Blood Pressure 140/69 04/08/24 09:18 Pulse Oximetry 96 04/08/24 09:18 Oxygen Delivery Method Room Air 04/08/24 09:18 Course Orders Ordered: Discontinued Medications Doxycycline Hyclate (Doxycycline Hyclate 100 Mg Tablet) 100 mg PO NOW ONE Stop: 04/08/24 12:57 Last Admin: 04/08/24 13:09 Dose: 100 mg Documented By: JACQUE Morphine Sulfate (Morphine 4 Mg/Ml Inj) 4 mg IV NOW ONE Stop: 04/08/24 09:34 Last Admin: 04/08/24 10:40 Dose: 4 mg Documented By: JACQUE Ondansetron HCl (Ondansetron 4 Mg/2 Ml Inj) 4 mg IV NOW ONE Stop: 04/08/24 09:34 Last Admin: 04/08/24 10:40 Dose: 4 mg Documented By: JACQUE Sodium Chloride (Sodium Chloride 0.9% Flush) 50 ml IV NOW ONE Stop: 04/08/24 09:35 Last Admin: 04/08/24 10:56 Dose: Not Given Documented By: JACQUE Vital Signs Vital signs: Vital Signs - 8 hr 04/08/24 09:18 04/08/24 10:48 04/08/24 11:00 Temperature 97.2 F L Pulse Rate 63 55 L 54 L Respiratory Rate 14 16 Blood Pressure 140/69 Pulse Oximetry 96 95 93 Oxygen Delivery Method Room Air 04/08/24 11:00 04/08/24 11:30 04/08/24 11:30 Temperature Pulse Rate 53 L Respiratory Rate 14 Blood Pressure 126/65 128/64 Pulse Oximetry 95 Oxygen Delivery Method 04/08/24 12:01 04/08/24 12:02 04/08/24 12:02 Temperature Pulse Rate 59 L 60 Respiratory Rate 21 Blood Pressure 136/83 Pulse Oximetry 94 96 Oxygen Delivery Method 04/08/24 12:30 04/08/24 12:30 04/08/24 13:00 Temperature Pulse Rate 57 L Respiratory Rate 19 Blood Pressure 139/72 135/71 Pulse Oximetry 96 Oxygen Delivery Method 04/08/24 13:00 Temperature Pulse Rate 58 L Respiratory Rate 13 Blood Pressure Pulse Oximetry 97 Oxygen Delivery Method Room Air MDM - Abdominal Pain Lab Data 04/08/24 10:40 04/08/24 10:40 Labs: Lab Results 04/08/24 Range/Units 10:40 WBC 6.3 (4.5-11.0) X10^3/uL RBC 3.99 L (4.5-5.9) X10^6/uL Hgb 13.6 (13.5-17.5) g/dL Hct 38.1 L (41-53) % MCV 95.5 (80-100) fL MCH 34.1 H (26-34) PG MCHC 35.7 (30-36) % RDW 13.5 (11.6-14.8) % Plt Count 193 (150-400) X10^3/uL Neut % (Auto) 62.9 (50-75) % Lymph % (Auto) 18.4 L (25-40) % Prentiss % (Auto) 18.4 H (3-14) % Eos % (Auto) 0.0 L (2-4) % Baso % (Auto) 0.3 (0-2) % Neut # (Auto) 4000 (4032-1861) /uL Lymph # (Auto) 1200 (2481-5877) /uL Prentiss # (Auto) 1200 H (0-900) /uL Eos # (Auto) 0 (0-450) /uL Baso # (Auto) 0 (0-100) /uL Sodium 138 (137-145) mmol/L Potassium 4.2 (3.4-5.1) mmol/L Chloride 104 (98-107) mmol/L Carbon Dioxide 27 (22-32) mmol/L BUN 28 H (9-20) mg/dL Creatinine 1.18 (0.66-1.25) mg/dL Estimated GFR > 60 (>60) mL/min BUN/Creatinine Ratio 23.7 H (6-22) Glucose 109 (80-110) mg/dL Calcium 8.9 (8.4-10.2) mg/dL Total Bilirubin 1.5 H (0.2-1.3) mg/dL AST 29 (17-59) IU/L ALT 23 (<50) IU/L Alkaline Phosphatase 75 (38-126) U/L Total Protein 7.6 (6.3-8.2) g/dL Albumin 4.6 (3.5-5.0) g/dL Globulin 3.0 (1.7-4.1) g/dL Albumin/Globulin Ratio 1.5 (1.0-2.8) Imaging Data CT scan - abdomen/pelvis: Radiologist's Impression: [place] [address] CT Scan Report Signed Patient: Charles De La Cruz MR#: [id number] : 1945 Acct:[id number] Age/Sex: 78 / M Date of Service: 04/08/24 Loc: ED Accession Number: [id number] Procedure: CT abdomen pelvis w con Ordering Provider: Ward Conley MD PROCEDURE: CT ABDOMEN PELVIS W CON INDICATIONS: left inguinal mass TECHNIQUE: After the administration of intravenous contrast, axial sections acquired from the lung bases to the pubic symphysis. Coronal and sagittal reformats were performed. For radiation dose reduction, the following was used: automated exposure control, adjustment of mA and/or kV according to patient size. COMPARISON: None. FINDINGS: Image quality: Diagnostic Lower chest: Basal atelectasis, including segmental atelectasis partially seen in the right lower lobe. Coronary calcifications. Trace pericardial effusion Liver: Subcentimeter lesion in the right lobe, too small to characterize, probably a cyst Gallbladder and biliary system: Unremarkable, nondilated Pancreas: No ductal dilation Spleen: Nonenlarged Adrenals: No discrete nodules Kidneys: No solid mass. No hydronephrosis. There is mild periureteral edematous fat stranding bilaterally. No obstructing calcified stone is identified. Vessels and lymph nodes: The main portal vein is patent. No abdominal aortic aneurysm. [id number] atherosclerotic calcifications are seen. No pathologic lymphadenopathy by size criteria. Bowel and peritoneum: No evidence of small bowel obstruction. Colonic diverticula. Nondilated appendix. No drainable ascites or abscess Body wall: Small fat containing umbilical hernia , also containing mildly congested omentum. Another small midline ventral hernia is seen above the umbilicus, with a small nodule measuring 1 cm. Left greater than right inguinal hernias also seen. Pelvis: Obscured by metallic artifact. There is bladder wall thickening. Prostate is not well assessed. Bones: Right hip arthroplasty with surrounding metallic artifact. Degenerative changes of the bones. IMPRESSION: Moderate left and mild right fat containing inguinal hernias. Small fat containing umbilical hernia also seen with mildly congested omentum. Another small midline hernia is seen above the umbilicus with a small nodule measuring 1 cm. Ultrasound could further evaluate these findings. No small bowel obstruction. Other findings above. Dictated by: Javy Luciano M.D. on 04/08/2024 at 12:15 Approved by: Javy Luciano M.D. on 04/08/2024 at 12:20 [facility] Narrative Medical decision making narrative: Patient here for left inguinal pain mass swelling that started 4 days ago. Patient has history of right inguinal hernia repair many many years ago. Patient denies any new strain or constipation or heavy lifting that may have caused injury to this area. No fever chills. No urinary complaints. No bowel complaints. Patient states he had a small cyst in the inguinal area for many many years. However over the past weekend they noticed it did get vigor. at bedside. After history and exam CBC CMP CT abdomen pelvis morphine Zofran [facility] Medical records reviewed: No recent visit for this complaint. Patient is sent over here by primary care office this morning Differential considered: Includes but not limited to inguinal hernia/strangulated/incarcerated, abscess, cellulitis Lab Test results independently reviewed as above. Pertinent findings: WBC 6.3 hemoglobin 13.6 Imaging studies independently reviewed: CT abdomen pelvis bilateral fat containing inguinal hernias. Consultations: 1:00 p.m.. Spoke with General surgery Dr. Koo, he has reviewed CT imaging. Does not feel that the hernias contributing to the pain or erythema on exam. He feels there may be an abscess/cutaneous abscess that is causing the problem. This would correlate with patient's history of a cyst has been there for years. No drainage indicated this time. No surgical intervention for the fat hernia, who will see patient in the office for re- evaluation. He would like antibiotics started now. Treatments: Doxycycline morphine Zofran Re-evaluations: 1:17 p.m.. Updated patient and results and imaging and my discussion with Dr. Koo. They agree with treatment plan. Antibiotics and pain control and follow up in the office with Dr. Koo. At this time no intervention needed for the hernias, they are likely not contributing to patient's cellulitis. Return precautions reviewed. They desire discharge home. Is likely the cyst he has had a long-time causing the cellulitis. Discussion: Appropriate for discharge home exam is reassuring. IV contrast use for CT imaging. Return precautions reviewed pain controlled. Antibiotics started general surgery contacted follow up provided through General surgery Diagnosis: Inguinal cellulitis Discharge Plan Departure Patient Disposition: Home Clinical Impression: Cellulitis Qualifiers: Site of cellulitis: unspecified site Qualified Code(s): L03.90 - Cellulitis, unspecified Instructions: DI for Cellulitis -- Adult Activity Restrictions/Additional Instructions: General surgery was contacted today. Your CT imaging was reviewed. Your symptoms are likely not due to the hernia. It is likely skin infection/cellulitis. Antibiotics have been started. Prescription sent to your pharmacy [facility] today. Please call provided general surgery office today for follow up within a week for re-evaluation. Return if worse if any questions or concerns. No driving operating machinery today or when taking prescribed pain medication, as you have been given pain medication. Prescriptions: New hydrocodone-acetaminophen 5-325 mg tablet 1 tab PO Q6H PRN (Reason: pain) Qty: 20 0RF doxycycline monohydrate 100 mg capsule 100 mg PO BID Qty: 20 0RF ondansetron 4 mg tablet,disintegrating 4 mg PO Q8H PRN (Reason: nausea and vomiting) Qty: 10 0RF No Action aspirin 81 mg tablet,delayed release (DR/EC) 81 mg PO DAILY atorvastatin 80 mg tablet 80 mg PO DAILY nitroglycerin 0.4 mg tablet, sublingual 0.4 mg sublingual Q5M PRN (Reason: chest pain) Qty: 25 5RF Rx Instructions: do not exceed 3 doses per episode metoprolol succinate 25 mg Tablet Extended Release 24 Hr 12.5 mg PO DAILY ramipril 10 mg Capsule 10 mg PO DAILY ezetimibe 10 mg Tablet 10 mg PO DAILY Referrals: Bo Koo MD [Physician] - Gutierrez Michelle MD [Primary Care Provider] - Stand Alone Forms: Patient Portal/API/Survey
[2024-04-08] MEDS: ONDANSETRON 4 MG/2 ML INJ IV (10:40)
[2024-04-08] MEDS: MORPHINE 4 MG/ML INJ IV (10:40)
[2024-04-08 11:02] LABS: Add Manual Diff / Slide Review NO; Basophils Absolute Auto 0 /uL (0-100); Basophils Percent Auto 0.3 % (0-2); Eosinophils Absolute Auto 0 /uL (0-450); Hematocrit 38.1 % (41-53); Hemoglobin 13.6 g/dL (13.5-17.5); Lymphocytes Absolute Auto 1200 /uL (1100-4500); Lymphocytes Percent Auto 18.4 % (25-40); Mean Corpuscular HGB Conc 35.7 % (30-36); Mean Corpuscular Hemoglobin 34.1 PG (26-34); Mean Corpuscular Volume 95.5 fL (80-100); Monocytes Absolute Auto 1200 /uL (0-900); Monocytes Percent Auto 18.4 % (3-14); Neutrophils Absolute Auto 4000 /uL (1500-7000); Neutrophils Percent Auto 62.9 % (50-75); Platelet Count 193 X10^3/uL (150-400); Red Blood Cell Count 3.99 X10^6/uL (4.5-5.9); Red Cell Distribution Width 13.5 % (11.6-14.8); White Blood Cell Count 6.3 X10^3/uL (4.5-11.0)
[2024-04-08 11:13] LABS: Alanine Aminotransferase 23 IU/L (<50); Albumin 4.6 g/dL (3.5-5.0); Albumin Globulin Ratio 1.5 (1.0-2.8); Alkaline Phosphatase 75 U/L (38-126); Aspartate Aminotransferase 29 IU/L (17-59); BUN Creatinine Ratio 23.7 (6-22); Bilirubin Total 1.5 mg/dL (0.2-1.3); Blood Urea Nitrogen 28 mg/dL (9-20); Calcium 8.9 mg/dL (8.4-10.2); Carbon Dioxide 27 mmol/L (22-32); Chloride 104 mmol/L (98-107); Estimated Glomerular Filt Rate > 60 mL/min (>60); Glucose 109 mg/dL (80-110); HEMOLYSIS < 15 (0-50); Potassium 4.2 mmol/L (3.4-5.1); Sodium 138 mmol/L (137-145); Total Protein 7.6 g/dL (6.3-8.2)
[2024-04-08] MEDS: DOXYCYCLINE HYCLATE 100 MG TABLET PO (13:09)
== END 2024-04-08 13:36 | disposition home or self-care (01) ==
PROVIDERS: Emergency Provider Emergency Medicine; PCP Internal Medicine
DX: L03.311 Cellulitis of abdominal wall (principal)
CPT/HCPCS: 36415; 74177; 80053; 85025; 96374; 96375; 99284; J2270; J2405; Q9967